=== PATIENT | female | born 1955 | race American Indian/Alaskan Native ===

== ENCOUNTER 2020-06-15 21:31 | Emergency (ER) | payer MEDICARE ==
[2020-06-15] MEDS ORDERED: diphenhydrAMINE 25 MG CAP PO PRN (23:26)
[2020-06-15] MEDS ORDERED: MICONAZOLE NITRATE 71 GM TP SCH (23:30)
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
[2020-06-15] MEDS: HALOPERIDOL LACTATE 5 MG/1 ML INJ IM PRN (23:56)
[2020-06-15] MEDS: LORazepam 2 MG/ML VIAL IM PRN (23:57)
--- NOTE | 2020-06-16 00:09 | XRay Report ---
BILATERAL KNEES, 2 VIEWS EACH INDICATION / CLINICAL INFORMATION: fall knee pain. COMPARISON: None available. FINDINGS: BONES/JOINT(S): No acute fracture or subluxation. Previous internal fixation in the proximal left tib ia. Moderate tricompartmental DJD in both knees. No appreciable joint effusion. SOFT TISSUES: No significant abnormality. ADDITIONAL FINDINGS: None. Signer Name: Ramy Mcmillan MD Signed: 06/16/2020 12:05 AM Workstation Name: [id number]
--- NOTE | 2020-06-16 00:09 | XRay Report ---
AP VIEW OF THE PELVIS. INDICATION / CLINICAL INFORMATION: fall leg pain. COMPARISON: None available. FINDINGS: BONES/JOINT(S): No acute fracture or subluxation. Moderately advanced bilateral hip DJD. No focal bon e lesions. SOFT TISSUES: No significant abnormality. ADDITIONAL FINDINGS: None. Signer Name: Ramy Mcmillan MD Signed: 06/16/2020 12:05 AM Workstation Name: [id number]
[2020-06-16 00:38] LABS: Hematocrit 33.6 % (30.3-42.9); Hemoglobin 11.3 gm/dl (10.1-14.3)
[2020-06-16 00:54] LABS: INR 1.12 (0.87-1.13)
[2020-06-16 00:55] LABS: Partial Thromboplastin Time 30.3 Sec. (24.2-36.6)
[2020-06-16 01:00] LABS: Blood Urea Nitrogen 8 mg/dL (7-17); Calcium 9.5 mg/dL (8.4-10.2); Hemolysis Index 6
[2020-06-16 01:01] LABS: BUN/Creatinine Ratio 13
[2020-06-16 08:16] VITALS: BP 151/88
[2020-06-16 08:18] LABS: Bilirubin,Urine NEG (Negative); Blood,Urine NEG (Negative); Color,Urine Yellow (Yellow); Protein,Urine <15 mg/dL mg/dL (Negative); Urobilinogen,Urine < 2.0 mg/dL (<2.0)
[2020-06-16 08:26] LABS: Amphetamine Screen,Urine Negative; Benzodiazepines Screen,Urine Negative; Cannabinoid Screen,Urine Negative; Cocaine Screen,Urine Negative; Methadone Screen,Urine Negative; Opiate Screen,Urine Negative
[2020-06-16] MEDS: HALOPERIDOL LACTATE 5 MG/1 ML INJ IM PRN (09:31)
[2020-06-16] MEDS: LORazepam 2 MG/ML VIAL IM PRN ×2 (09:31→16:52)
[2020-06-16] MEDS ORDERED: LACTULOSE 20 GM PO SCH (10:00)
[2020-06-16] MEDS ORDERED: CHOLECALCIFEROL (VIT D3) 1000 UNIT (25 mcg) TAB PO SCH (10:00)
[2020-06-16] MEDS ORDERED: APIXABAN 5 MG TAB PO SCH (10:00)
[2020-06-16] MEDS ORDERED: DOCUSATE SODIUM 100 MG CAP PO SCH (10:00)
[2020-06-16] MEDS ORDERED: METOPROLOL TARTRATE 25 MG TAB PO SCH (10:00)
[2020-06-16] MEDS ORDERED: NYSTATIN POWDER 15 GM TP PRN (10:00)
[2020-06-16] MEDS ORDERED: LACTULOSE 20 GM/30 ML ORAL LIQD PO SCH (10:00)
[2020-06-16] MEDS ORDERED: FERROUS SULFATE 325 MG TAB PO SCH (10:00)
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
[2020-06-16] MEDS ORDERED: DIVALPROEX DR 125 MG TAB PO SCH (12:00)
[2020-06-16] MEDS ORDERED: SERTRALINE 100 MG TAB PO SCH (12:00)
[2020-06-16] MEDS ORDERED: QUEtiapine 100 MG TAB PO SCH (12:00)
[2020-06-16] MEDS ORDERED: BENZTROPINE 1 MG TAB PO SCH (22:00)
[2020-06-16] MEDS ORDERED: SENNOSIDES 8.6 MG TAB PO SCH (22:00)
[2020-06-16] MEDS ORDERED: SENNOSIDES PO SCH (22:00)
[2020-06-16] MEDS ORDERED: traZODone 100 MG TAB PO SCH (22:00)
== END 2020-06-16 17:42 ==
LOC: ED 21:31
DX: M25.562 Pain in left knee (principal); E66.8 Other obesity; Z68.38 Body mass index [BMI] 38.0-38.9, adult; F31.9 Bipolar disorder, unspecified; I10 Essential (primary) hypertension; G20 Parkinson's disease; F02.80 Dementia in other diseases classified elsewhere, unspecified severity, without behavioral disturbance, psychotic disturbance, mood disturbance, and anxiety; G47.09 Other insomnia; Z79.899 Other long term (current) drug therapy; Z88.0 Allergy status to penicillin; Z98.890 Other specified postprocedural states
CPT/HCPCS: 36415; 72170; 73560; 80048; 80307; 81001; 82550; 83735; 85014; 85018; 85049; 85610; 85730; 96372; 99285; J1630; J2060; U0003; 80320; G0480